=== PATIENT | female | born 1985 | race Caucasian/White ===

== ENCOUNTER 2019-03-25 17:06 | Emergency (ER) | payer OTHER ==
[~2019-03-25] VITALS: Ht 165.1 cm; Wt 113.4 kg
== END 2019-03-25 18:57 | disposition home or self-care (01) ==
LOC: ER 17:06
DX: M25.572 Pain in left ankle and joints of left foot (principal); R60.0 Localized edema; S92.812S Other fracture of left foot, sequela; X58.XXXS Exposure to other specified factors, sequela